=== PATIENT | male | born 1985 | race African-American/Black ===

== ENCOUNTER 2017-02-03 03:01 | Emergency (ER) | payer OTHER ==
[2017-02-03] MEDS ORDERED: Aspirin Low Dose CHEW TAB* 81 MG PO ONE (03:16)
[2017-02-03] MEDS ORDERED: Ketorolac INJ* 30 MG/ML 1 ML VIAL IV PUSH ONE (03:19)
[2017-02-03 03:53] LABS: Hematocrit 42 % (42-52); Hemoglobin 13.8 g/dl (14.0-18.0); Mean Corpuscular HGB Conc 33 g/dl (31-36); Mean Corpuscular Hemoglobin 27 pg (27-31); Mean Corpuscular Volume 82 fL (80-94); Mean Platelet Volume 9 um3 (7.4-10.4); Red Blood Count 5.08 10^6/ul (4.0-5.4); Red Cell Distribution Width 13 % (10.5-15); White Blood Count 10.8 10^3/ul (3.5-10.8)
[2017-02-03 04:05] LABS: Albumin 4.3 g/dL (3.2-5.2); BUN/Creatinine Ratio 13.1 (8-20); Calcium 9.2 mg/dL (8.6-10.3); EGFR African American 89.1 (>60); EGFR Non-African American 69.3 (>60); Globulin 2.7 g/dL (2-4); Magnesium 1.8 mg/dL (1.9-2.7); Total Bilirubin 0.3 mg/dL (0.2-1.0)
[2017-02-03 04:07] LABS: Troponin I 0.01 ng/mL (<0.04)
--- NOTE | 2017-02-03 04:43 | ED ---
Estelle Angulo Thomas, scribed for Karen Hernandes MD on 02/03/17 at 0320 . Back Pain - HPI Summary HPI Summary: The patient is a 31 year old male presenting to the ED c/o left upper back pain that woke him up from sleep about an hour ago. The pain is constant. The pain is described as sharp. The pain is rated 10/10. The pain is aggravated by deep breaths and coughing. It is alleviated by nothing. The patient has treated the pain with nothing prior to arrival. Patient denies SOB. - History of Current Complaint Chief Complaint: EDBackInjuryPain Stated Complaint: BACK PAIN Time Seen by Provider: 02/03/17 03:02 Hx Obtained From: Patient Onset/Duration: Sudden Onset, Lasting Hours - 1, Still Present Onset/Duration: Still Present Timing: Constant Back Pain Location: Is Discrete @ - left upper back Severity Currently: Severe Pain Intensity: 10 Pain Scale Used: 0-10 Numeric Character: Sharp Aggravating Symptom(s): Other - Deep breaths, coughing Associated Signs And Symptoms: Negative: Fever, Other - SOB - Allergies/Home Medications Allergies/Adverse Reactions: Allergies Allergy/AdvReac Type Severity Reaction Status Date / Time No Known Allergies Allergy Verified 02/03/17 03:05 PMH/Surg Hx/FS Hx/Imm Hx Previously Healthy: No Endocrine/Hematology History: Denies: Hx Diabetes, Hx Thyroid Disease Cardiovascular History: Reports: Other Cardiovascular Problems/Disorders - MVP, MULTIPLE VALVE PALPATATIONS, AGE 15. Denies: Hx Congestive Heart Failure, Hx Hypertension Respiratory History: Denies: Hx Asthma, Hx Chronic Obstructive Pulmonary Disease (COPD) GI History: Denies: Hx Ulcer History: Denies: Hx Renal Disease - Immunization History Date of Influenza Vaccine: has not received Infectious Disease History: No Infectious Disease History: Denies: Hx Hepatitis, Hx Human Immunodeficiency Virus (HIV), Traveled Outside the [place] in Last 30 Days - Family History Known Family History: Positive: Other - Patient denies relevant FHx - Social History Alcohol Use: Occasionally Substance Use Type: Reports: None Hx Tobacco Use: Yes Smoking Status (MU): Light Every Day Tobacco Smoker Review of Systems Negative: Fever Negative: Shortness Of Breath Positive: Other - Left upper back pain All Other Systems Reviewed And Are Negative: Yes Physical Exam - Summary Physical Exam Summary: VITAL SIGNS: Reviewed. GENERAL: Patient is a well-developed and nourished male who is lying comfortable in the stretcher. Patient is not in any acute respiratory distress. HEAD AND FACE: No signs of trauma. No ecchymosis, hematomas or skull depressions. No sinus tenderness. EYES: PERRLA, EOMI x 2, No injected conjunctiva, no nystagmus. EARS: Hearing grossly intact. Ear canals and tympanic membranes are within normal limits. MOUTH: Oropharynx within normal limits. NECK: Supple, trachea is midline, no adenopathy, no JVD, no carotid bruit, no c- spine tenderness, neck with full ROM. CHEST: Symmetric, no tenderness at palpation LUNGS: He has mildly decreased breath sounds secondary to the pain. CVS: Regular rate and rhythm, S1 and S2 present, no murmurs or gallops appreciated. ABDOMEN: Soft, non-tender. No signs of distention. No rebound no guarding, and no masses palpated. Bowel sounds are normal. EXTREMITIES: FROM in all major joints, no edema, no cyanosis or clubbing. NEURO: Alert and oriented x 3. No acute neurological deficits. Speech is normal and follows commands. SKIN: Dry and warm Triage Information Reviewed: Yes Vital Signs On Initial Exam: Initial Vitals Temp Pulse Resp BP Pulse Ox 99.6 F 92 16 147/90 99 02/03/17 03:02 02/03/17 03:02 02/03/17 03:02 02/03/17 03:02 02/03/17 03:02 Vital Signs Reviewed: Yes Diagnostics - Vital Signs Vital Signs Temp Pulse Resp BP Pulse Ox 02/03/17 03:02 99.6 F 92 16 147/90 99 - Laboratory Result Diagrams: 02/03/17 03:35 02/03/17 03:35 Lab Statement: Any lab studies that have been ordered have been reviewed, and results considered in the medical decision making process. - Radiology CXR Xray Interpretation: No Acute Changes - Normal CXR Radiology Interpretation Completed By: ED Physician - EKG 03:18 Cardiac Rate: NL EKG Rhythm: Sinus Rhythm - at 89 BPM EKG Interpretation: Normal intervals. Normal axis. No ischemic change. Back Pain Course/Dx - Course Assessment/Plan: The patient is a 31 year old male presenting to the ED c/o left upper back pain that woke him up from sleep about an hour ago. In the ED course the patient was given ASA and Toradol. Bloodwork was obtained. EKG and CXR were obtained, and they are normal. The patient is diagnosed with back pain , musculoskeletal. The patient is instructed to follow up with primary care. - Diagnoses Provider Diagnoses: Musculoskeletal back pain Discharge - Discharge Plan Condition: Stable Disposition: HOME Patient Education Materials: Back Pain (ED) Referrals: Anjali Laureano MD [Primary Care Provider] - 3 Days Additional Instructions: Follow up with your primary care physician in three days. Return to the emergency department for any new or worsening symptoms. The documentation as recorded by the Estelle hood Thomas accurately reflects the service I personally performed and the decisions made by me, Karen Hernandes MD.
[2017-02-03 05:00] VITALS: BP 134/90
--- NOTE | 2017-02-03 08:15 | RAD ---
INDICATION: Chest pain. COMPARISON: Comparison is made with a prior study from September 11, 2013. TECHNIQUE: A portable view of the chest was obtained. FINDINGS: Cardiac and mediastinal contours appear to be within normal limits. The lungs are clear. No pleural effusion is seen. IMPRESSION: NO EVIDENCE FOR ACUTE DISEASE.
== END 2017-02-03 04:50 | disposition home or self-care (01) ==
LOC: ED 03:01
DX: M54.6 Pain in thoracic spine (principal); I34.1 Nonrheumatic mitral (valve) prolapse; Z72.0 Tobacco use
CPT/HCPCS: 36415; 71010; 80053; 82550; 83735; 83880; 84484; 85025; 85379; 85610; 85730; 93005; 96374; 99283; A9270-GY; J1885

== ENCOUNTER 2018-05-29 12:47 | Emergency (ER) | payer OTHER ==
--- NOTE | 2018-05-29 13:18 | ED ---
HPI Chest Pain - HPI Summary HPI Summary: This pt is a 32 y/o male presenting to [facility] c/o intermittent chest pain today. 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 He describes the pain as stabbing. He notes he got up from his desk and walked around without relief. Pt then felt his chest pain radiating up to his left sided neck. Additionally felt tingling in feet, nausea, SOB, lightheadedness feeling like passing out. This episode lasted for 15 minutes and spontaneously resolved. He reports that after 5 minutes his chest pain returned but resolved after minutes again. Pt then went home and his symptoms returned again. He currently denies any chest pain. Pt reports he has had this pain in the past. PMHx: mitral valve prolapse. Denies any other hx. He does not take any medications on a daily basis. Pt admits to smoking and drinking alcohol. Denies drug use. No FHx of OR at his age. - History of Current Complaint Chief Complaint: EDChestPainROMI Time Seen by Provider: 05/29/18 13:15 Hx Obtained From: Patient Onset/Duration: Started Hours Ago, Still Present Timing: Intermittent, Lasting Minutes Initial Severity: Moderate Current Severity: None Pain Intensity: 0 Pain Scale Used: 0-10 Numeric Chest Pain Location: Mid Sternal Chest Pain Radiates: Yes Chest Pain Radiates To:: Neck - left side Character: Sharp/Stabbing - stabbing Aggravating Factor(s): Nothing Alleviating Factor(s): Nothing Associated Signs and Symptoms: Positive: Chest Pain, Tingling, Shortness of Breath, Lightheadedness, Nausea. Negative: Fever, Chills - Allergy/Home Medications Allergies/Adverse Reactions: Allergies Allergy/AdvReac Type Severity Reaction Status Date / Time No Known Allergies Allergy Verified 05/29/18 12:53 Home Medications: Home Medications NK [No Home Medications Reported] 05/29/18 [History Confirmed 05/29/18] PMH/Surg Hx/FS Hx/Imm Hx Endocrine/Hematology History: Denies: Hx Diabetes, Hx Thyroid Disease Cardiovascular History: Reports: Other Cardiovascular Problems/Disorders - MVP, MULTIPLE VALVE PALPATATIONS, AGE 15. Denies: Hx Congestive Heart Failure, Hx Hypertension, Hx Pacemaker/ICD Respiratory History: Denies: Hx Asthma, Hx Chronic Obstructive Pulmonary Disease (COPD) GI History: Denies: Hx Ulcer History: Denies: Hx Renal Disease Sensory History: Denies: Hx Hearing Aid Psychiatric History: Denies: Hx Panic Disorder - Immunization History Date of Influenza Vaccine: has not received Infectious Disease History: No Infectious Disease History: Denies: Hx Hepatitis, Hx Human Immunodeficiency Virus (HIV), Traveled Outside the [place] in Last 30 Days - Family History Known Family History: Positive: Other - Patient denies relevant FHx Negative: Cardiac Disease - denies OR in family - Social History Alcohol Use: Occasionally Substance Use Type: Reports: None Hx Tobacco Use: Yes Smoking Status (MU): Light Every Day Tobacco Smoker Review of Systems Negative: Fever Positive: Chest Pain Positive: Shortness Of Breath Positive: Nausea Neurological: Other - POS: lightheadedness Positive: Paresthesia All Other Systems Reviewed And Are Negative: Yes Physical Exam - Summary Physical Exam Summary: VITAL SIGNS: Reviewed. GENERAL: Patient is a well-developed and nourished male who is lying comfortable in the stretcher. Patient is not in any acute respiratory distress. HEAD AND FACE: No signs of trauma. No ecchymosis, hematomas or skull depressions. No sinus tenderness. EYES: PERRLA, EOMI x 2, No injected conjunctiva, no nystagmus. EARS: Hearing grossly intact. Ear canals and tympanic membranes are within normal limits. MOUTH: Oropharynx within normal limits. NECK: Supple, trachea is midline, no adenopathy, no JVD, no carotid bruit, no c- spine tenderness, neck with full ROM. CHEST: Symmetric, no tenderness at palpation LUNGS: Clear to auscultation bilaterally. No wheezing or crackles. CVS: Regular rate and rhythm, S1 and S2 present, no murmurs or gallops appreciated. ABDOMEN: Soft, non-tender. No signs of distention. No rebound no guarding, and no masses palpated. Bowel sounds are normal. EXTREMITIES: FROM in all major joints, no edema, no cyanosis or clubbing. NEURO: Alert and oriented x 3. No acute neurological deficits. Speech is normal and follows commands. SKIN: Dry and warm Triage Information Reviewed: Yes Vital Signs On Initial Exam: Initial Vitals Temp Pulse Resp BP Pulse Ox 98.6 F 90 18 156/114 98 05/29/18 12:49 05/29/18 12:49 04/05/19 12:49 05/29/18 12:49 05/29/18 12:49 Vital Signs Reviewed: Yes Diagnostics - Vital Signs Vital Signs Temp Pulse Resp BP Pulse Ox 05/29/18 12:49 98.6 F 90 18 156/114 98 - Laboratory Result Diagrams: 05/29/18 13:36 05/29/18 13:36 Lab Statement: Any lab studies that have been ordered have been reviewed, and results considered in the medical decision making process. - Radiology Chest XR Radiology Interpretation Completed By: Radiologist Summary of Radiographic Findings: IMPRESSION: No active cardiopulmonary disease is noted. Dr. Finney has reviewed this report. - EKG 12:58 Cardiac Rate: NL - at 87 bpm EKG Rhythm: Sinus Rhythm Summary of EKG Findings: No ST elevations. 15:29 Cardiac Rate: NL - 81 bpm EKG Rhythm: Sinus Rhythm Summary of EKG Findings: Nl axis, no ST elevations Re-Evaluation - Re-Evaluation First Eval Re-Evaluation Time: 18:10 Change: Improved Comment: Pt is now asymptomatic. Chest Pain Course/Dx - Course Assessment/Plan: This patient is a 32-year-old male who presents to the emergency department with a chief complaint of chest pain. Test results without any significant abnormality except for a PE of 249 for which the patient was given IV fluids. 2 troponins 4 hours apart as 0.00. EKG is a normal sinus rhythm with no ST elevation. Chest x-ray impression: No acute pathology. In the ED course the patient has remained stable. The patient was given an aspirin. He has no other symptoms. At this point I discussed my physical exam and findings with the patient and the need to follow-up with primary care physician. The patient is hemodynamically stable alert and oriented 3. - Chest Pain Differential Diagnosis/HQI/PQRI: Acute OR, ACS, Angina, CHF, Chest Wall, GI Disease, Lower Respiratory Infection - Diagnoses Provider Diagnoses: Atypical chest pain Discharge - Sign-Out/Discharge Documenting (check all that apply): Patient Departure - Discharge Patient Received Moderate/Deep Sedation with Procedure: No - Discharge Plan Condition: Improved Disposition: HOME Patient Education Materials: Chest Pain (ED) Referrals: Anjali Laureano MD [Primary Care Provider] - (3 days) Additional Instructions: FOLLOW UP WITH YOUR PRIMARY CARE PROVIDER WITHIN ONE WEEK FOR HIGH BLOOD PRESSURE NOTED TODAY. RETURN TO THE ED FOR ANY WORSENING OR NEW SYMPTOMS. - Billing Disposition and Condition Condition: IMPROVED Disposition: Home - Attestation Statements Document Initiated by Randy: Yes Documenting Scribe: Silva [place] Provider For Whom Randy is Documenting (Include Credential): Todd Finney MD Scribe Attestation: ISilva, scribed for Todd Finney MD on 05/29/18 at 1847. Scribe Documentation Reviewed: Yes Provider Attestation: The documentation as recorded by the Silva hood accurately reflects the service I personally performed and the decisions made by me, Todd Finney MD Status of Scribe Document: Viewed
[2018-05-29 13:48] LABS: ABS Basophils 0 10^3/ul (0-0.2); ABS Eosinophils 0.2 10^3/ul (0-0.6); ABS Lymphocytes 2.6 10^3/ul (1.0-4.8); ABS Monocytes 0.7 10^3/ul (0-0.8); ABS Neutrophils 4.7 10^3/ul (1.5-7.7); ABS Nucleated RBC 0 10^3/ul; Eosinophil % 2.7 %; Hematocrit 44 % (36-46); Hemoglobin 14.6 g/dL (14.0-18.0); Lymphocyte % 31.6 %; Mean Corpuscular HGB Conc 33 g/dL (31-36); Mean Corpuscular Hemoglobin 27 pg (27-31); Mean Corpuscular Volume 83 fL (80-94); Mean Platelet Volume 8.5 fL (7.4-10.4); Nucleated Red Blood Cells % 0.1; Platelet Count 244 10^3/uL (150-450); Red Blood Count 5.37 10^6 /uL (4.18-5.48); Red Cell Distribution Width 13 % (10.5-15); White Blood Count 8.3 10^3/uL (3.5-10.8)
[2018-05-29 14:08] LABS: Albumin 4.8 g/dL (3.2-5.2); Albumin/Globulin Ratio 1.7 (1-3); BUN/Creatinine Ratio 14.9 (8-20); Calcium 9.5 mg/dL (8.6-10.3); EGFR African American 112.5 (>60); Globulin 2.9 g/dL (2-4); Potassium 4.2 mmol/L (3.5-5.0); Total Bilirubin 0.5 mg/dL (0.2-1.0); Total Protein 7.7 g/dL (6.4-8.9)
[2018-05-29 14:11] LABS: CKMB ng/mL 2.1 ng/mL (0.6-6.3)
[2018-05-29 14:35] LABS: TSH (Thyroid Stimulating Horm) 0.47 mcIU/mL (0.34-5.60)
[2018-05-29 18:26] VITALS: BP 140/90
== END 2018-05-29 18:24 | disposition home or self-care (01) ==
LOC: ED 12:47
DX: R07.89 Other chest pain (principal); R06.02 Shortness of breath; R42 Dizziness and giddiness; I34.1 Nonrheumatic mitral (valve) prolapse; F17.210 Nicotine dependence, cigarettes, uncomplicated; R20.2 Paresthesia of skin
CPT/HCPCS: 36415; 71045; 80053; 82550; 82553; 83605; 83735; 83880; 84443; 84484; 85025; 86703; 93005; 99283

== ENCOUNTER 2018-09-21 23:00 | Emergency (ER) | payer OTHER ==
[2018-09-21] MEDS ORDERED: Acetaminophen TAB* 325 MG PO ONE (23:35)
[2018-09-22] MEDS ORDERED: Acetaminophen TAB* 325 MG PO ONE (01:25)
--- NOTE | 2018-09-22 03:11 | ED ---
Head Injury - HPI Summary HPI Summary: This pt is a 32 Y/O M presenting to [facility] with a CC of a head injury after falling out of the shower at 2300 09/21/18. He states that he lost consciousness and was woken by his sometime later. He stated that he has pain in his occipital region but it has been getting better since the onset. His pain is currently a 5-6/10 in severity. He stated that he does not have any neck pain, back pain, fevers, chills, or CP. He stated no aggravating factors but noted that time was making his injury feel less severe. - History Of Current Complaint Chief Complaint: EDFall Stated Complaint: FALL PER EMS Time Seen by Provider: 09/22/18 01:14 Hx Obtained From: Patient Mechanism Of Injury: Fall From A Standing Position Onset/Duration: Started Hours Ago, Still Present, Resolved - feels better than the onset Onset of Pain: Immediate Severity Currently: Moderate Severity Initially: Severe Pain Intensity: 6 Pain Scale Used: 0-10 Numeric Location of Head Injury: Occipital Location: Diffuse Aggravating Factor(s): Other: - nothing Alleviating Factor(s): Other: - time Associated Signs And Symptoms: Negative - neck pain, back pain, fevers, chills, or CP., LOC Duration Unknown - Allergies/Home Medications Allergies/Adverse Reactions: Allergies Allergy/AdvReac Type Severity Reaction Status Date / Time No Known Allergies Allergy Verified 05/29/18 12:53 PMH/Surg Hx/FS Hx/Imm Hx Previously Healthy: Yes Endocrine/Hematology History: Denies: Hx Diabetes, Hx Thyroid Disease Cardiovascular History: Reports: Other Cardiovascular Problems/Disorders - MVP, MULTIPLE VALVE PALPATATIONS, AGE 15. Denies: Hx Congestive Heart Failure, Hx Hypertension, Hx Pacemaker/ICD Respiratory History: Denies: Hx Asthma, Hx Chronic Obstructive Pulmonary Disease (COPD) GI History: Denies: Hx Ulcer History: Denies: Hx Renal Disease Sensory History: Denies: Hx Hearing Aid Psychiatric History: Denies: Hx Panic Disorder - Immunization History Date of Influenza Vaccine: has not received Infectious Disease History: No Infectious Disease History: Denies: Hx Hepatitis, Hx Human Immunodeficiency Virus (HIV), Traveled Outside the [place] in Last 30 Days - Family History Known Family History: Positive: Other - Patient denies relevant FHx Negative: Cardiac Disease - denies ID in family - Social History Alcohol Use: Occasionally Substance Use Type: Reports: None Hx Tobacco Use: Yes Smoking Status (MU): Light Every Day Tobacco Smoker Review of Systems Negative: Fever, Chills ENT: Negative - neck pain Negative: Chest Pain Musculoskeletal: Negative - back pain Positive: Other - Head pain Neurological: Other - loss of conciousness All Other Systems Reviewed And Are Negative: Yes Physical Exam - Summary Physical Exam Summary: VITAL SIGNS: Reviewed. GENERAL: Patient is a well-developed and nourished male who is lying comfortable in the stretcher. Patient is not in any acute respiratory distress. HEAD AND FACE: No signs of trauma. No ecchymosis, hematomas or skull depressions. No sinus tenderness. EYES: PERRLA, EOMI x 2, No injected conjunctiva, no nystagmus. EARS: Hearing grossly intact. Ear canals and tympanic membranes are within normal limits. MOUTH: Oropharynx within normal limits. NECK: Supple, trachea is midline, no adenopathy, no JVD, no carotid bruit, no c- spine tenderness, neck with full ROM CHEST: Symmetric, no tenderness at palpation LUNGS: Clear to auscultation bilaterally. No wheezing or crackles. CVS: Regular rate and rhythm, S1 and S2 present, no murmurs or gallops appreciated. ABDOMEN: Soft, non-tender. No signs of distention. No rebound no guarding, and no masses palpated. Bowel sounds are normal. EXTREMITIES: FROM in all major joints, no edema, no cyanosis or clubbing. NEURO: Alert and oriented x 3. No acute neurological deficits. Speech is normal and follows commands. SKIN: Dry and warm Triage Information Reviewed: Yes Vital Signs On Initial Exam: Initial Vitals Temp Pulse Resp BP Pulse Ox 98.5 F 89 18 148/98 99 09/21/18 23:04 09/21/18 23:04 09/21/18 23:04 09/21/18 23:04 09/21/18 23:04 Vital Signs Reviewed: Yes - Alistair Coma Scale Best Eye Response: 4 - Spontaneous Best Motor Response: 6 - Obeys Commands Best Verbal Response: 5 - Oriented Coma Scale Total: 15 Diagnostics - Vital Signs Vital Signs Temp Pulse Resp BP Pulse Ox 09/21/18 23:04 98.5 F 89 18 148/98 99 - Laboratory Lab Statement: Any lab studies that have been ordered have been reviewed, and results considered in the medical decision making process. - CT Brain CT CT Interpretation Completed By: Radiologist Summary of CT Findings: No acute intracranial processes. ED physician has reviewed this report. Head Injury Course/Dx Course Of Treatment: This pt is a 32 Y/O M presenting to [facility] with a CC of a head injury after falling out of the shower at 2300 09/21/18. He states that he lost consciousness and was woken by his sometime later. He stated that he has pain in his occipital region but it has been getting better since the onset. His PE found no acute issues along with a GCS of 15. His brain CT found no intracranial processes and he will be dischrged home with a Dx of a head injury. - Diagnoses Provider Diagnoses: Head injury Discharge - Sign-Out/Discharge Documenting (check all that apply): Patient Departure - discharge Patient Received Moderate/Deep Sedation with Procedure: No - Discharge Plan Condition: Stable Disposition: HOME Patient Education Materials: Head Injury (ED) Referrals: Anjali Laureano MD [Primary Care Provider] - 2 Days Additional Instructions: Please follow up with your primary care provider in 2-3 days and return to the emergency department for any new or worsening symptoms. - Attestation Statements Document Initiated by Scribe: Yes Documenting Scribe: Hemant Wu Provider For Whom Scribe is Documenting (Include Credential): Karen Hernandes MD Scribe Attestation: Hemant Angulo, scribed for Karen Hernandes MD on 09/22/18 at 0314. Status of Scribe Document: Ready
[2018-09-22 04:40] VITALS: BP 128/73
== END 2018-09-22 04:00 | disposition home or self-care (01) ==
LOC: ED 23:00
DX: S09.90XA Unspecified injury of head, initial encounter (principal); W18.39XA Other fall on same level, initial encounter; Y92.002 Bathroom of unspecified non-institutional (private) residence as the place of occurrence of the external cause; F17.210 Nicotine dependence, cigarettes, uncomplicated
CPT/HCPCS: 70450; 99282; A9270-GY